=== PATIENT | male | born 1990 | race Caucasian/White ===

== ENCOUNTER 2022-09-02 19:14 | Emergency (ER) | payer BC ==
[2022-09-02 19:36] VITALS: BP 133/88; PULSE 71; RESP 18; TEMP 99; BMI 25.0
[2022-09-02] MEDS ORDERED: PANTOPRAZOLE SODIUM 40 MG VIAL IVPUSH ONE (19:38)
[2022-09-02] MEDS ORDERED: PANTOPRAZOLE SODIUM 40 MG VIAL ONE (19:54)
[2022-09-02 20:14] LABS: HEMATOCRIT 44.4 % (35.4-49); HEMOGLOBIN 15.4 G/dL (11.7-16.9); MCH 31.7 pg (25.7-33.7); MCHC 34.8 g/dl (32.0-35.9); MEAN CELL VOLUME 91.4 fl (80-96); MEAN PLT VOLUME 11.2 fl (7.5-11.1); PLATELET COUNT 168.2 10^3/uL (134-434); RBC 4.86 10^6/uL (4.00-5.60); RDW 13.4 % (11.9-15.9); WHITE BLOOD COUNT 4.9 10^3/uL (4.0-10.8)
[2022-09-02 20:26] LABS: BILIRUBIN,TOTAL 0.9 mg/dl (0.2-1); BLOOD UREA NITROGEN 13.2 mg/dl (7-18); CALCIUM 9.4 mg/dl (8.5-10.1); CREATININE 1.1 mg/dl (0.6-1.3); POTASSIUM 3.7 mmol/L (3.5-5.1); SGOT/AST 12.5 U/L (15-37); SGPT/ALT 22.2 U/L (7-52); TOT PROT 6.6 g/dl (6.4-8.2)
== END 2022-09-02 22:25 | disposition home or self-care (01) ==
LOC: FER 19:14
PROC: 3E033GC Introduction of Other Therapeutic Substance into Peripheral Vein, Percutaneous Approach (ICD-10-PCS; principal; 2022-09-02)
DX: R10.13 Epigastric pain (principal); R35.0 Frequency of micturition
CPT/HCPCS: 36415; 74176-TC; 80053; 81003; 85027; 99284-25